=== PATIENT | female | born 1975 | race Hispanic/Latino ===

== ENCOUNTER 2018-06-04 12:16 | Emergency (ER) | payer OTHER ==
[2018-06-04 13:42] LABS: RAPID GROUP A STREP NEGATIVE (NEGATIVE)
== END 2018-06-04 14:00 | disposition home or self-care (01) ==
LOC: EDH 12:16
DX: J00 Acute nasopharyngitis [common cold] (principal); Z98.890 Other specified postprocedural states
CPT/HCPCS: 87804; 87880